=== PATIENT | female | born 2005 | race African-American/Black ===

== ENCOUNTER 2024-02-05 13:36 | Outpatient (CLI) | payer OTHER | END 2024-02-05 13:37 | disposition home or self-care (01) | LOC: CSHULT 13:36 | PROVIDERS: ATTEND Family Medicine | DX: Z34.02 Encounter for supervision of normal first pregnancy, second trimester (principal); Z3A.24 24 weeks gestation of pregnancy | CPT/HCPCS: 76805 ==